=== PATIENT | female | born 1950 | race American Indian/Alaskan Native ===

== ENCOUNTER 2020-10-07 13:53 | Outpatient (CLI) | payer MEDICARE, OTHER ==
--- NOTE | 2020-10-07 16:29 | Mammography Report ---
DIGITAL SCREENING MAMMOGRAM WITH CAD, 10/07/2020 CLINICAL INFORMATION / INDICATION: Routine screening mammography. TECHNIQUE: Digital bilateral 2D mammography was obtained in the craniocaudal and mediolateral obliqu e projections. This examination was interpreted with the benefit of Computer-Aided Detection analysis . COMPARISON: 07/22/2010 FINDINGS: Breast Density: There are scattered areas of fibroglandular density. No dominant mass, suspicious calcifications, or architectural distortion in the left breast. There is a new 10 mm nodule in the right breast at 2-3:00, middle depth. This will need further evalu ation with right breast ultrasound and possibly spot compression imaging. No other significant interval change. IMPRESSION: New right breast 10 mm nodule at 2-3:00, middle depth. Recommend right breast ultrasound with possible spot compression imaging. Follow up recommendation: Ultrasound BI-RADS Category 0: Incomplete. Needs additional imaging evaluation and/or prior mammograms for mukesh yi. A "normal" or negative report should not discourage follow up or biopsy of a clinically significant f inding. A written summary of these findings will be mailed to the patient. The patient will be entered into a mammography reporting system which will generate a reminder letter for the patient's next appointmen t at the appropriate interval. The [employer] recommends yearly mammograms starting at age 40 and continuing as l kulwinder as a woman is in good health. Breast MRI is recommended for women with an approximate 20-25% or greater lifetime risk of breast cancer, including women with a strong family history of breast or ova juma cancer or who have been treated for Hodgkin's disease. Signer Name: Osiris Daigle MD Signed: 10/07/2020 4:24 PM Workstation Name: [email or web address]
== END 2020-10-07 13:54 | disposition home or self-care (01) ==
LOC: SPVWC 13:53
PROVIDERS: ATTEND Family Medicine
DX: Z12.31 Encounter for screening mammogram for malignant neoplasm of breast (principal); N63.12 Unspecified lump in the right breast, upper inner quadrant
CPT/HCPCS: 77067

== ENCOUNTER 2020-11-19 13:07 | Outpatient (CLI) | payer MEDICARE, OTHER ==
--- NOTE | 2020-11-19 14:14 | Mammography Report ---
RIGHT DIGITAL DIAGNOSTIC MAMMOGRAM WITH CAD , 11/19/2020 RIGHT LIMITED BREAST ULTRASOUND CLINICAL INFORMATION / INDICATION: Abnormal screening mammogram. Screening recall of the right breast for new oval density. TECHNIQUE: Digital right mammographic imaging was performed. Spot compression views were obtained. Li mited ultrasound was performed. This examination was interpreted with the benefit of Computer-Aided D etection (CAD) analysis. COMPARISON: Screening mammogram, 10/07/2020 and 07/22/2010 FINDINGS: Breast Density: There are scattered areas of fibroglandular density. MAMMOGRAPHIC FINDINGS: Spot compression views of the right breast demonstrate that the 5 mm circumscr ibed oval density at the 2-3:00 position appears significantly less prominent. There is an associated lucent center. ULTRASOUND FINDINGS: Targeted ultrasound evaluation was performed of the area of interest. Sonograp hic evaluation of the right breast demonstrates no evidence of suspicious solid mass or shadowing. Th ere is no focal sonographic abnormality to account for the small circumscribed density. IMPRESSION: 1. The oval circumscribed density at the 2-3:00 position appears significantly less prominent with sp ot compression views and demonstrates a lucent center. This suggests it represents a benign finding s uch as an intramammary lymph node or small cyst. No sonographic correlate is identified. This is cons idered a probably benign finding and a six-month follow-up right mammogram and ultrasound is recommen ded. Follow up recommendation: Short term follow up in 6 months. BI-RADS Category 3: Probably Benign. Followup in 6 months. A "normal" or negative report should not discourage follow up or biopsy of a clinically significant f inding. A written summary of these findings will be mailed to the patient. The patient will be entered into a mammography reporting system which will generate a reminder letter for the patient's next appointmen t at the appropriate interval. According to the [employer], yearly mammograms are recommended starting at age 40 and continuing as long as a woman is in good health. Breast MRI is recommended for women with an [place] roximately 20-25% or greater lifetime risk of breast cancer, including women with a strong family his tory of breast or ovarian cancer and women who have been treated for Hodgkin's disease. Signer Name: Kelly Garcia MD Signed: 11/19/2020 2:09 PM Workstation Name: [email or web address]
== END 2020-11-19 13:08 | disposition home or self-care (01) ==
LOC: SPVWC 13:07
PROVIDERS: ATTEND Family Medicine
DX: R92.8 Other abnormal and inconclusive findings on diagnostic imaging of breast (principal); R92.0 Mammographic microcalcification found on diagnostic imaging of breast

== ENCOUNTER 2021-08-18 11:21 | Outpatient (CLI) | payer MEDICARE, OTHER ==
--- NOTE | 2021-08-18 13:49 | Mammography Report ---
RIGHT DIGITAL DIAGNOSTIC MAMMOGRAM WITH CAD CONVENTIONAL, 08/18/2021 RIGHT LIMITED BREAST ULTRASOUND CLINICAL INFORMATION / INDICATION: Abnormal mammogram TECHNIQUE: Digital right mammographic imaging was performed. Spot compression views were obtained. Li mited ultrasound was performed. This examination was interpreted with the benefit of Computer-Aided D etection (CAD) analysis. COMPARISON: 10/07/2020, 11/19/2020 FINDINGS: Breast Density: The breasts are heterogeneously dense, which may obscure small masses. MAMMOGRAPHIC FINDINGS: The small density in question in the medial right breast is stable. However, a benign-appearing rounded nodule measuring 6 mm in the 8:30 position 7 cm from the nipple, is increas ing in size. ULTRASOUND FINDINGS: Targeted ultrasound evaluation was performed of the area of interest. In the are a of mammographic concern today at 8:30, 7 cm from the nipple, a corresponding [address] is seen. Incidental note is made of scattered other cysts and probable cysts measuring up to 8 mm in the 4:00 position. In the 7:00 position, 9 cm from the nipple, a probable complicated cyst is seen measuring 6 mm. IMPRESSION: 1. Original density in question in the medial right breast appears stable 2. Enlarging benign-appearing nodule on today's mammogram in the 8:30 position is shown to be a simpl e cyst 3. Other simple cysts are seen. A complicated cyst is noted in the 7:00 position incidentally. Follow up recommendation: 1. Resume bilateral mammography in 6 months 2. 6 month follow-up right breast ultrasound for the complicated cyst at 7:00 BI-RADS Category 3: PROBABLY BENIGN. Followup in 6 months. A "normal" or negative report should not discourage follow up or biopsy of a clinically significant f inding. A written summary of these findings will be mailed to the patient. The patient will be entered into a mammography reporting system which will generate a reminder letter for the patient's next appointmen t at the appropriate interval. According to the [employer], yearly mammograms are recommended starting at age 40 and continuing as long as a woman is in good health. Breast MRI is recommended for women with an [place] roximately 20-25% or greater lifetime risk of breast cancer, including women with a strong family his tory of breast or ovarian cancer and women who have been treated for Hodgkin's disease. Signer Name: Abel Zazueta MD Signed: 08/18/2021 1:45 PM Workstation Name: [id number]
== END 2021-08-18 11:22 | disposition home or self-care (01) ==
LOC: MAMMO 11:21
PROVIDERS: ATTEND Student in an Organized Health Care Education/Training Program
DX: N60.01 Solitary cyst of right breast (principal); N63.13 Unspecified lump in the right breast, lower outer quadrant; R92.8 Other abnormal and inconclusive findings on diagnostic imaging of breast; R92.1 Mammographic calcification found on diagnostic imaging of breast